=== PATIENT | female | born 1950 | race Caucasian/White ===

== ENCOUNTER 2019-03-22 19:52 | Day surgery (SDC) | payer SELFPAY ==
[~2019-03-22] VITALS: Ht 157.5 cm; Wt 65.6 kg
--- NOTE | 2019-03-22 19:52 | NUR ---
[facility] ems accessed 18g to rt a/c and amd 4mg zofran d/t nausea.
[2019-03-22] MEDS ORDERED: ONDANSETRON 4 MG/2 ML (SDV) Z0FRAN ONE ×3 (19:56→23:43)
[2019-03-22] MEDS ORDERED: NS IV 1000 ML 1,000 ML ONE (19:56)
[2019-03-22] MEDS ORDERED: NS IV 1000 ML 1,000 ML IV ONE (19:57)
[2019-03-22] MEDS ORDERED: TETANUS,DIPTH,PERTUSS P/F (BOOSTRIX) 0.5 ML VIAL IM ONE (20:00)
[2019-03-22] MEDS ORDERED: ONDANSETRON 4 MG/2 ML (SDV) Z0FRAN IVP ONE (20:00)
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
[2019-03-22] MEDS ORDERED: IOHEXOL 350 MG/ML 100 ML (OMNIPAQUE 350) VIAL IV ONE (20:30)
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
[2019-03-22 20:57] LABS: HEMOGLOBIN 13.6 G/DL (11.5-16.0); MEAN PLATELET VOLUME 9.3 FL (7.4-10.4); RED CELL DISTRIBUTION WIDTH 12.9 % (10.0-14.5); WHITE BLOOD COUNT 11.3 10^3/uL (4.3-11.0)
[2019-03-22 21:15] LABS: ALANINE AMINOTRANSFERASE 11 U/L (0-55); ALKALINE PHOSPHATASE 64 U/L (40-136); BILIRUBIN,DIRECT 0.2 MG/DL (0.0-0.3); BILIRUBIN,INDIRECT 0.3 MG/DL; BILIRUBIN,TOTAL 0.5 MG/DL (0.1-1.0); BUN/CREATININE RATIO 14; CALCIUM 9.4 MG/DL (8.5-10.1); CARBON DIOXIDE 21 MMOL/L (21-32); CHLORIDE 104 MMOL/L (98-107); CREATINE KINASE 97 U/L (29-168); CREATININE SERUM 0.71 MG/DL (0.60-1.30); GFR ESTIMATED > 60; GLUCOSE 114 MG/DL (70-105); MAGNESIUM 1.9 MG/DL (1.6-2.4); PHOSPHORUS 2.8 MG/DL (2.3-4.7); POTASSIUM 3.5 MMOL/L (3.6-5.0); SODIUM 140 MMOL/L (135-145); TOTAL PROTEIN 6.3 GM/DL (6.4-8.2)
[2019-03-22] MEDS ORDERED: ceFAZolin 2 GM/50 ML NS 50 ML IV ONE (21:15)
[2019-03-22 21:26] LABS: FIBRIN DEGRADATION PRODUCTS 3.83 UG/ML (0.00-0.49); PROTHROMBIN TIME PATIENT 13.9 SEC (12.2-14.7)
[2019-03-22] MEDS ORDERED: ceFAZolin INJECTION 2,000 MG ONE (21:26)
[2019-03-22] MEDS ORDERED: NS (IVPB) 50 ML ONE (21:27)
--- NOTE | 2019-03-22 21:39 | Diagnostic Imaging Report ---
PROCEDURE: CT maxillofacial without contrast. TECHNIQUE: Multiple contiguous axial images were obtained through the facial bones without the use of intravenous contrast. Auto Exposure Controls were utilized during the CT exam to meet ALARA standards for radiation dose reduction. INDICATION: Trauma. Abrasions to the face There is irregularity to the tip of the nasal bone consistent with a fracture. No significant displacement is seen. The septum is not deviated. No other facial bone fracture is evident. Sinuses are well aerated. There is no intraorbital abnormality seen. There is a right frontal laceration. IMPRESSION: Fractured nasal bone. Laceration in the right frontal scalp. Dictated by: Dictated on workstation # [id number]
--- NOTE | 2019-03-22 21:47 | Diagnostic Imaging Report ---
PROCEDURE: CT thoracic and lumbar spine without contrast. TECHNIQUE: Multiple contiguous axial images were obtained through the thoracic and lumbar spine without the use of intravenous contrast. Sagittal and coronal reformations were then performed. INDICATION: Trauma, back pain There is levoscoliosis of the lower thoracic spine with dextroscoliosis of the mid lumbar spine. There is normal height of the vertebral bodies with no spondylolisthesis. There are degenerative changes present with spondylosis present. No significant spinal canal encroachment is evident. No fracture or other acute bony abnormality is seen. IMPRESSION: There is scoliosis and degenerative changes present with no fracture or other acute abnormality seen. Dictated by: Dictated on workstation # [id number]
--- NOTE | 2019-03-22 21:50 | NUR ---
Dr. Chew arrives to ED. Pt report given to provider.
--- NOTE | 2019-03-22 22:00 | NUR ---
Report given to BUSHRA Lee from OR.
--- NOTE | 2019-03-22 22:05 | NUR ---
OR team to radiology dept. with Dr. Chew. OR team assumes care of pt @ this time.
[2019-03-22] MEDS ORDERED: fentaNYL INJECTION 100 MCG/2 ML AMP ONE (22:06)
[2019-03-22] MEDS ORDERED: MIDAZOLAM 2 MG/2 ML (VERSED) VIAL ONE (22:06)
[2019-03-22] MEDS ORDERED: CLINDAMYCIN 600 MG/4ML (CLEOCIN) VIAL ONE (22:18)
--- NOTE | 2019-03-22 22:30 | NUR ---
Pt report given to BUSHRA Harvey to assume care of pt in room #415 after OR procedure.
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
[2019-03-22] MEDS ORDERED: LACTATED RINGERS 1,000 ML IV PRN (22:33)
[2019-03-22] MEDS ORDERED: HYDR-34 PO (22:42)
[2019-03-22] MEDS ORDERED: AMOX-358 PO (22:42)
--- NOTE | 2019-03-22 22:44 | Discharge Inst-Surgical ---
D/C Lap Instructions-DAVON New, Converted, or Re-Newed RX: RX on Chart Follow Up Appt in 1 week Activity as tolerated Regular Diet Symptoms to Report: Fever over 101 degree F, Nausea/Vomiting Infection Signs and Symptoms to report: Increased redness, Foul odor of wound, Increased drainage Bathing instructions: May shower Operative Area Clean/Dry; Keep incision clean/dry If any problems/questions: Contact your physician or go to Emergency Room PEPITO MAYS MD Mar 22, 2019 22:43
[2019-03-22] MEDS ORDERED: morphine INJ 10 MG/ML 1ML (SYR OR VIAL) IVP PRN ×2 (22:45)
[2019-03-22] MEDS ORDERED: ACETAMINOPHEN 325 MG TABLET PO PRN (22:45)
[2019-03-22] MEDS ORDERED: HYDROcodone/APAP 7.5 MG/325 MG (LORTAB, LORCET PLUS) TABLET PO PRN (22:45)
[2019-03-22] MEDS ORDERED: ONDANSETRON 4 MG/2 ML (SDV) Z0FRAN IVP PRN (22:45)
[2019-03-22] MEDS ORDERED: morphine INJ 10 MG/ML 1ML (SYR OR VIAL) ONE (22:49)
[2019-03-22] MEDS ORDERED: HYDROmorphone 2 MG/ML VIAL (DILAUDID) IV ONE (23:30)
[2019-03-22] MEDS ORDERED: morphine INJ 10 MG/ML 1ML (SYR OR VIAL) IVP ONE (23:30)
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
[2019-03-22] MEDS ORDERED: ROCURONIUM 10 MG/ML 5 ML SYRINGE IV ONE (23:43)
[2019-03-22] MEDS ORDERED: SEVOFLURANE (ULTANE) 15 ML INHAL SOLN ONE (23:43)
[2019-03-22] MEDS ORDERED: proPOfol 200 MG/20 ML (DIPRIVAN) VIAL IV ONE (23:43)
[2019-03-22] MEDS ORDERED: LIDOCAINE PF 2% 5 ML (XYLOCAINE) VIAL ONE (23:43)
[2019-03-22] MEDS ORDERED: DEXAMETHASONE 10 MG/ML (DECADRON) 1 ML VIAL ONE (23:43)
[2019-03-22] MEDS ORDERED: SUCCINYLCHOLINE INJ 100 MG/5 ML SYR ONE (23:43)
[2019-03-22] MEDS ORDERED: BSS 15 ML ONE (23:49)
[2019-03-22] MEDS ORDERED: NEO/POLY/BAC (NEOSPORIN) OINT 15 GM TUBE ONE (23:58)
[2019-03-23] VITALS (11 sets, daily range): BP systolic 110–140; BP diastolic 68–90
[2019-03-23] MEDS ORDERED: HYDROmorphone 2 MG/ML VIAL (DILAUDID) ONE (00:05)
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
--- NOTE | 2019-03-23 03:18 | Anesthesia-General Post-Op ---
General Patient Condition Mental Status/LOC: Same as Preop Cardiovascular: Satisfactory Nausea/Vomiting: Absent Respiratory: Satisfactory Pain: Controlled Complications: Absent Post Op Complications Complications None Follow Up Care/Instructions Patient Instructions None needed. Anesthesia/Patient Condition Patient Condition Patient is doing well, no complaints, stable vital signs, no apparent adverse anesthesia problems. No complications reported per nursing. WESTON COOLEY CRNA Mar 23, 2019 03:18
--- NOTE | 2019-03-23 04:17 | NUR ---
PATIENT REMOVED DRESSING FROM HEAD STATING THAT "IT WAS TOO HOT". PATIENT IS REFUSING TO HAVE A DRESSING REAPPLIED TO HEAD WOUND.
[2019-03-23] MEDS ORDERED: CLINDAMYCIN 600 MG/50 ML IVPB 50 ML IV SCH (06:00)
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
[2019-03-23] MEDS ORDERED: NEO/POLY/BAC (NEOSPORIN) OINT 15 GM TUBE TOP SCH (09:00)
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
[2019-03-23] MEDS ORDERED: HYDROGEN PEROXIDE 473 ML SOLUTION MC PRN (10:30)
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
--- NOTE | 2019-03-23 13:00 | NUR ---
PT AMBULATED TO BATHROOM X 1 ASSIST WITH THIS RN. UPON RETURNING BACK TO BED, PT AGREES TO HAVE DRESSING PLACED OVER SUTURES AT THIS TIME. 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
--- NOTE | 2019-03-23 14:51 | NUR ---
PT DISCHARGED VIA WHEELCHAIR, PT FRIEND BENEDICT HERE TO TRANSFER PT. DISCHARGE INSTRUCTIONS PROVIDED. PT AND FRIEND VERBALIZE UNDERSTANDING OF DISCHARGE INSTRUCTIONS AND QUESTIONS ANSWERED AT THIS TIME. BENEDICT STATES SHE HAS ALREADY PICKED UP PT SCRIPTS AT THIS TIME.
== END 2019-03-23 14:51 | disposition home or self-care (01) ==
LOC: ER 19:56 → SDC 22:01 → 4TH 03-23 01:20 → SDC 03-23 14:51
PROVIDERS: ATTEND Surgery
DX: S01.81XA Laceration without foreign body of other part of head, initial encounter (principal); S01.01XA Laceration without foreign body of scalp, initial encounter; S81.011A Laceration without foreign body, right knee, initial encounter; S91.011A Laceration without foreign body, right ankle, initial encounter; S02.2XXA Fracture of nasal bones, initial encounter for closed fracture; M19.90 Unspecified osteoarthritis, unspecified site; S06.0X9A Concussion with loss of consciousness of unspecified duration, initial encounter; S16.1XXA Strain of muscle, fascia and tendon at neck level, initial encounter; S49.91XA Unspecified injury of right shoulder and upper arm, initial encounter; T14.8XXA Other injury of unspecified body region, initial encounter; Z96.642 Presence of left artificial hip joint; Z80.0 Family history of malignant neoplasm of digestive organs; Z80.1 Family history of malignant neoplasm of trachea, bronchus and lung; Z79.891 Long term (current) use of opiate analgesic; Z79.899 Other long term (current) drug therapy; V80.010A Animal-rider injured by fall from or being thrown from horse in noncollision accident, initial encounter
CPT/HCPCS: 36415; 70450; 70486; 71045; 71260; 72125; 72128; 72131; 72170; 73030; 73130; 74177; 80048; 80076; 80320; 82550; 83735; 84100; 84484; 85027; 85379; 85384; 85610; 85730; 86850; 86900; 86901; 86920; 90471; 90715; 93041; 94664; 96361; 96374; 99291; 99292